=== PATIENT | female | born 1970 | race Caucasian/White ===

== ENCOUNTER 2018-09-15 14:57 | Emergency (ER) | payer OTHER ==
[~2018-09-15] VITALS: Ht 167.6 cm; Wt 70.6 kg
[~2018-09-15 14:57] MED LIST: AMLO2.5T2 PO; DOCU-144 PO; FER325 PO; NPH10OT LEFT EAR
[2018-09-15 15:10] VITALS: BP 139/92; PULSE 99; RESP 16; Ht 167.6 cm; Wt 70.6 kg
[2018-09-15] MEDS ORDERED: SOD CHLORIDE 0.9% 1,000 ML IV STA (15:31)
[2018-09-15] MEDS ORDERED: ONDANSETRON 4 MG INJ IV STA (15:31)
[2018-09-15] MEDS ORDERED: KETOROLAC 30 MG INJ IV STA (15:31)
[2018-09-15] MEDS ORDERED: SOD CHLORIDE 0.9% 100 ML ONE (16:19)
[2018-09-15] MEDS ORDERED: IOHEXOL 300MG/ML 150 ML BTL ONE (16:19)
--- NOTE | 2018-09-15 17:15 | ERD ---
ER Documentation Chief Complaint Chief Complaint dizzy: 'faint' x2d, gassy abdomen. hx anemia not bleeding HPI 48-year-old female presenting with complaints of feeling faint and is distended abdomen. She feels that she is however her test have been negative. She has had normal bowel movements and no change in urination. Concerned about the distended abdomen and was unsure as to why this was happening. Denies other medical problems. Medical history hypertension. Allergy to amoxicillin. Surgical history . Social history denies ROS All systems reviewed and are negative except as per history of present illness. Medications Home Meds Active Scripts Ferrous Sulfate* (Ferrous Sulfate*) 325 Mg Tabec, 325 MG PO DAILY, #30 TAB Prov:LAYA WOOD PA-C 09/15/18 Docusate Sodium* (Colace*) 100 Mg Capsule, 100 MG PO TID, #30 CAP Prov:LAYA WOOD PA-C 09/15/18 Neomycin/Polymyxin/Hydrocort* (Cortisporin* Otic) 10 Ml Susp, 4 DROP LEFT EAR QID for 7 Days, EA Prov:TAPAN COSTELLO [employer] 07/18/14 Reported Medications Ferrous Sulfate* (Ferrous Sulfate*) 325 Mg Tabec, 325 MG PO DAILY, TAB 01/05/14 Amlodipine Besylate* (Norvasc*) 2.5 Mg Tablet, 2.5 MG PO DAILY, TAB 01/05/14 Allergies Allergies: Coded Allergies: Amoxicillin (Verified Allergy, Mild, RASH,ITCHING, 01/05/14) PMhx/Soc History of Surgery: Yes (C/SECTION) Anesthesia Reaction: No Hx Neurological Disorder: No Hx Respiratory Disorders: No Hx Cardiac Disorders: Yes (htn) Hx Psychiatric Problems: No Hx Miscellaneous Medical Probl: Yes (GASTRITIS) Hx Alcohol Use: No Hx Substance Use: No Hx Tobacco Use: No Smoking Status: Never smoker FmHx Family History: No diabetes, No coronary disease, No other Physical Exam Vitals Vital Signs Date Temp Pulse Resp B/P (MAP) Pulse Ox O2 O2 Flow FiO2 Time Delivery Rate 09/15/18 98.7 99 16 139/92 99 15:10 (108) Physical Exam GENERAL: The patient is well-appearing, well-nourished, in no acute distress CHEST: Clear to auscultation bilaterally. There are no rales, wheezes or rhonchi. HEART: Regular rate and rhythm. No murmurs, clicks, rubs or gallops. ABDOMEN: Active bowel sounds. No distention. No organomegaly. Generalized tenderness to palpation of the abdomen with no masses felt. BACK: No midline or flank tenderness. Result Diagram: 09/15/18 1541 09/15/18 1541 Results 24 hrs Laboratory Tests Test 09/15/18 15:40 09/15/18 15:41 09/15/18 15:43 POC Beta HCG, Qualitative NEGATIVE White Blood Count 8.6 10^3/ul Red Blood Count 5.06 10^6/ul Hemoglobin 8.9 g/dl Hematocrit 33.2 % Mean Corpuscular Volume 65.6 fl Mean Corpuscular Hemoglobin 17.6 pg Mean Corpuscular 26.8 g/dl Hemoglobin Concent Red Cell Distribution Width 18.9 % Platelet Count 385 10^3/UL Mean Platelet Volume 8.7 fl Immature Granulocytes % 0.300 % Neutrophils % 67.6 % Lymphocytes % 25.3 % Monocytes % 5.4 % Eosinophils % 0.9 % Basophils % 0.5 % Nucleated Red Blood Cells % 0.0 /100WBC Immature Granulocytes # 0.030 10^3/ul Neutrophils # 5.8 10^3/ul Lymphocytes # 2.2 10^3/ul Monocytes # 0.5 10^3/ul Eosinophils # 0.1 10^3/ul Basophils # 0.0 10^3/ul Nucleated Red Blood Cells # 0.0 10^3/ul Urine Color YELLOW Urine Clarity SLIGHTLY CLOUDY Urine pH 6.0 Urine Specific [place] 1.023 Urine Ketones NEGATIVE mg/dL Urine Nitrite NEGATIVE mg/dL Urine Bilirubin NEGATIVE mg/dL Urine Urobilinogen NEGATIVE mg/dL Urine Leukocyte Esterase TRACE Neal/ul Urine Microscopic RBC 1 /HPF Urine Microscopic WBC 2 /HPF Urine Squamous Epithelial Cells FEW /HPF Urine Bacteria FEW /HPF Urine Mucus FEW /HPF Urine Hemoglobin NEGATIVE mg/dL Urine Glucose 1+ mg/dL Urine Total Protein NEGATIVE mg/dl Sodium Level 139 mmol/L Potassium Level 3.8 mmol/L Chloride Level 105 mmol/L Carbon Dioxide Level 25 mmol/L Anion Gap 9 Blood Urea Nitrogen 10 mg/dl Creatinine 0.61 mg/dl Est Glomerular Filtrat Rate mL/min > 60 mL/min Glucose Level 100 mg/dl Calcium Level 9.0 mg/dl Total Bilirubin 0.5 mg/dl Direct Bilirubin 0.00 mg/dl Indirect Bilirubin 0.5 mg/dl Aspartate Amino Transf (AST/SGOT) 23 IU/L Alanine 20 IU/L Aminotransferase (ALT/SGPT) Alkaline Phosphatase 69 IU/L Total Protein 8.3 g/dl Albumin 4.5 g/dl Globulin 3.80 g/dl Albumin/Globulin Ratio 1.18 Lipase 115 U/L Bedside Urine pH (LAB) 6.0 Bedside Urine Protein (LAB) 1+ Bedside Urine Glucose (UA) 0.1% Bedside Urine Ketones (LAB) Trace Bedside Urine Blood Trace-intact Bedside Urine Nitrite (LAB) Negative Bedside Urine Leukocyte Esterase Trace (L Current Medications Medications Dose Sig/Fatou Start Time Status Last (Trade) Ordered Route PRN Stop Time Admin Dose Reason Admin Sodium 1,000 ml @ Q1H STAT 09/15/18 DC 09/15/18 Chloride 1,000 mls/hr IV 15:31 09/15/18 15:46 16:30 Ondansetron 4 mg ONCE STAT 09/15/18 DC 09/15/18 HCl (Zofran IV 15:31 09/15/18 15:47 Inj) 15:33 Ketorolac 30 mg ONCE STAT 09/15/18 DC 09/15/18 Tromethamine IV 15:31 09/15/18 15:47 (Toradol) 15:33 IV Flush 10 ml STK-MED 09/15/18 DC (NS 10 ml) ONCE .ROUTE 16:19 09/15/18 16:20 Sodium 100 ml @ ud STK-MED 09/15/18 DC Chloride ONCE .ROUTE 16:19 09/15/18 16:20 Iohexol 150 ml STK-MED 09/15/18 DC (Omnipaque ONCE .ROUTE 16:19 09/15/18 300mg/ ml) 16:20 Procedures/MDM Course: Blood shows anemia however patient declined CT scan at this time.. MDM: 48-year-old female presenting with dizziness and faintness. Patient does not have signs of infection I have low suspicion for acute abdominal emergency however patient has a family history of gastric cancers I recommend a CT scan at this time. Patient declined the scan and will follow-up with primary doctor. Patient understands the importance of getting a CT scan. All questions answered at discharge Departure Diagnosis: Primary Impression: Anemia Condition: Stable Patient Instructions: Anemia Referrals: [facility] YOU HAVE RECEIVED A MEDICAL SCREENING EXAM AND THE RESULTS INDICATE THAT YOU DO NOT HAVE A CONDITION THAT REQUIRES URGENT TREATMENT IN THE EMERGENCY DEPARTMENT. FURTHER EVALUATION AND TREATMENT OF YOUR CONDITION CAN WAIT UNTIL YOU ARE SEEN IN YOUR DOCTORS OFFICE WITHIN THE NEXT 1-2 DAYS. IT IS YOUR RESPONSIBILITY TO MAKE AN APPOINTMENT FOR FOLOW-UP CARE. IF YOU HAVE A PRIMARY DOCTOR --you should call your primary doctor and schedule an appointment IF YOU DO NOT HAVE A PRIMARY DOCTOR YOU CAN CALL OUR PHYSICIAN REFERRAL HOTLINE AT IF YOU CAN NOT AFFORD TO SEE A PHYSICIAN YOU CAN CHOSE FROM THE FOLLOWING [facility] [address] [facility] [address] [facility] [address] [facility] [address] [facility] [address] [facility]. [facility] [address] Additional Instructions: FOLLOW UP WITH YOUR PRIMARY CARE PHYSICIAN TOMORROW.Return to this facility if you are not improving as expected. LAYA WOOD PA-C Sep 15, 2018 17:15
== END 2018-09-15 17:19 | disposition left against medical advice (07) ==
LOC: FTE 14:57
DX: D64.9 Anemia, unspecified (principal); I10 Essential (primary) hypertension
CPT/HCPCS: 36415; 80053; 81001; 81025; 83690; 85025; 96361; 96374; 96375; J1885; J2405; J7030; Q9967; Z7502; Z7610; 81003